=== PATIENT | male | born 1995 | race Two or more races ===

== ENCOUNTER 2024-11-28 11:02 | Emergency (ER) | payer OTHER ==
[~2024-11-28] VITALS: Ht 180.3 cm; Wt 95.3 kg
[2024-11-28] MEDS ORDERED: KETOROLAC TROMETHAMINE 60 MG VIAL IM STA (12:27)
[2024-11-28] MEDS ORDERED: ORPHENADRINE CITRATE 30 MG/ML AMPUL IM STA (12:28)
[2024-11-28] MEDS ORDERED: ORPHENADRINE CITRATE 30 MG/ML AMPUL ONE (12:36)
[2024-11-28] MEDS ORDERED: KETOROLAC TROMETHAMINE 60 MG VIAL IM ONE (12:36)
== END 2024-11-28 13:15 | disposition home or self-care (01) ==
LOC: ER 11:02
DX: M62.830 Muscle spasm of back (principal)